=== PATIENT | female | born 1935 ===

== ENCOUNTER → 2016-10-31 | Outpatient (CLI) | payer OTHER, BC | END | disposition home or self-care (01) | LOC: C.LABMFLN 13:34 | PROVIDERS: ATTEND Family Medicine | DX: E83.42 Hypomagnesemia (principal) ==

== ENCOUNTER → 2017-10-25 | Outpatient (CLI) | payer OTHER, BC ==
[2017-10-25 12:53] LABS: HEMATOCRIT 38.8 % (37-47); MEAN CELL VOLUME 92.2 fL (80-100); MEAN CORPUSCULAR HEMOGLOBIN 30.9 pg (25-34); MEAN CORPUSCULAR HGB CONC 33.5 g/dl (32-36); MEAN PLATELET VOLUME 10.3 fL (7.4-10.4); PLATELET COUNT 358 K/uL (130-400); RED CELL DISTRIBUTION WIDTH CV 14.4 % (11.5-14.5); RED CELL DISTRIBUTION WIDTH SD 48.6 fL (36.4-46.3); WHITE BLOOD COUNT 13.27 K/uL (4.8-10.8)
== END | disposition home or self-care (01) ==
LOC: C.LABMFLN 07:00
PROVIDERS: ATTEND Family Medicine
DX: E53.8 Deficiency of other specified B group vitamins (principal); E55.9 Vitamin D deficiency, unspecified

== ENCOUNTER → 2017-10-26 | Outpatient (CLI) | payer OTHER, BC ==
[2017-10-26 13:26] LABS: BLOOD UREA NITROGEN 17 mg/dl (7-18); CALCIUM 9.9 mg/dl (8.5-10.1); CARBON DIOXIDE 29 mmol/L (21-32); CREATININE 0.83 mg/dl (0.60-1.20); GLUCOSE 104 mg/dl (70-99); POTASSIUM 3.6 mmol/L (3.5-5.1); SODIUM 136 mmol/L (136-145)
== END | disposition home or self-care (01) ==
LOC: C.LABMFLN 10:24
PROVIDERS: ATTEND Family Medicine
DX: M79.1 Myalgia (principal)

== ENCOUNTER → 2017-11-06 | Outpatient (CLI) | payer OTHER, BC ==
[2017-11-06 12:15] LABS: BASO % 0.4 %; BASO ABS # 0.04 K/uL (0-0.2); EOS % 1.9 %; EOS ABS # 0.21 K/uL (0-0.5); HEMATOCRIT 37.6 % (37-47); HEMOGLOBIN 12.2 g/dL (12.0-16.0); IG# 0.04 K/uL (0.00-0.02); LYMPH % 40.5 %; MEAN CELL VOLUME 92.4 fL (80-100); MEAN CORPUSCULAR HGB CONC 32.4 g/dl (32-36); MEAN PLATELET VOLUME 10.2 fL (7.4-10.4); MONO % 6.4 %; MONO ABS # 0.69 K/uL (0.11-0.59); NEUT % 50.4 %; NEUT ABS # 5.48 K/uL (1.4-6.5); PLATELET COUNT 369 K/uL (130-400); RED CELL DISTRIBUTION WIDTH CV 14.1 % (11.5-14.5); RED CELL DISTRIBUTION WIDTH SD 48.3 fL (36.4-46.3); WHITE BLOOD COUNT 10.86 K/uL (4.8-10.8)
== END | disposition home or self-care (01) ==
LOC: C.LABMFLN 07:07
PROVIDERS: ATTEND Family Medicine
DX: D72.829 Elevated white blood cell count, unspecified (principal)

== ENCOUNTER → 2017-11-28 | Outpatient (CLI) | payer OTHER, BC ==
[2017-11-28 12:48] LABS: BASO % 0.4 %; BASO ABS # 0.05 K/uL (0-0.2); EOS % 3.2 %; EOS ABS # 0.38 K/uL (0-0.5); HEMOGLOBIN 12.2 g/dL (12.0-16.0); IG# 0.03 K/uL (0.00-0.02); LYMPH % 35.8 %; LYMPH ABS # 4.22 K/uL (1.2-3.4); MEAN CELL VOLUME 92.5 fL (80-100); MEAN CORPUSCULAR HEMOGLOBIN 30.5 pg (25-34); MEAN PLATELET VOLUME 10.3 fL (7.4-10.4); MONO % 5.1 %; NEUT % 55.2 %; NEUT ABS # 6.52 K/uL (1.4-6.5); PLATELET COUNT 379 K/uL (130-400); RED CELL DISTRIBUTION WIDTH CV 14.1 % (11.5-14.5); RED CELL DISTRIBUTION WIDTH SD 47.6 fL (36.4-46.3)
== END | disposition home or self-care (01) ==
LOC: C.LABMFLN 07:01
PROVIDERS: ATTEND Family Medicine
DX: D72.829 Elevated white blood cell count, unspecified (principal)

== ENCOUNTER → 2018-01-26 | Outpatient (CLI) | payer OTHER, BC | END | disposition home or self-care (01) | LOC: C.LABMFLN 07:57 | PROVIDERS: ATTEND Psychiatry & Neurology Neurology | DX: M79.1 Myalgia (principal); G60.9 Hereditary and idiopathic neuropathy, unspecified; G31.84 Mild cognitive impairment of uncertain or unknown etiology ==